=== PATIENT | female | born 1985 | race Caucasian/White ===

== ENCOUNTER 2023-10-10 21:12 | Emergency (ER) | payer OTHER ==
[2023-10-10] MEDS: diphenhydrAMINE 50MG/ML VIAL IM ONE (21:15)
[2023-10-10] MEDS: HALOPERIDOL 5MG/ML 1ML VIAL IM ONE (21:15)
[2023-10-10] MEDS ORDERED: LORazepam 2 MG/ML 1ML VIAL IM ONE (21:20)
[2023-10-10] MEDS: UNRESOLVED CLARIFICATION ENTRY XX STA (21:21)
[2023-10-10 22:21] LABS: HEMATOCRIT 39.5 % (36.0-47.0); HEMOGLOBIN 14.5 g/dl (12.0-15.5); MEAN CORPUSCULAR VOLUME 92.5 fl (80.0-96.0); PLATELET COUNT, AUTOMATED 266 10^3/uL (150-450); RED BLOOD COUNT 4.27 10^6/uL (4.00-5.40); WHITE BLOOD COUNT 7.6 10^3/uL (4.0-10.0)
[2023-10-10 22:29] LABS: MEAN CORPUSCULAR HGB CONC 36.7 g/dl (32.0-36.5)
[2023-10-10 22:46] LABS: ALBUMIN 3.9 G/DL (3.2-5.2); ALKALINE PHOSPHATASE 70 U/L (46-116); ALT/SGPT 74 U/L (7.0-40); AST/SGOT 55 U/L (<34); BILIRUBIN,DIRECT 0.1 MG/DL (<0.4); BILIRUBIN,TOTAL 0.3 MG/DL (0.3-1.2); BLOOD UREA NITROGEN 10 MG/DL (9-23); CALCIUM LEVEL 8.3 MG/DL (8.5-10.1); CARBON DIOXIDE LEVEL 23 MMOL/L (20-31); CHLORIDE LEVEL 111 MMOL/L (98-107); GLOMERULAR FILTRATION RATE > 60.0 (>60); GLUCOSE, FASTING 127 MG/DL (60-100); POTASSIUM SERUM 4.1 MMOL/L (3.5-5.1); SALICYLATE LEVEL < 3.0 MG/DL (<30); SODIUM LEVEL 141 MMOL/L (136-145); TOTAL PROTEIN 7.4 G/DL (5.7-8.2)
[2023-10-10 22:48] LABS: THYROID STIMULATING HORMONE 2.427 uIU/ML (0.55-4.78)
[2023-10-10 22:49] LABS: HCG, SERUM QUALITATIVE NEGATIVE (NEGATIVE)
[2023-10-10 23:03] LABS: ETHYL ALCOHOL (ETHANOL) 0.354 % (0.000-0.010)
[2023-10-11 07:49] VITALS: BP 110/71; TEMP 97.1; O2SAT 97
== END 2023-10-11 08:07 | disposition home or self-care (01) ==
LOC: M ED 21:12
DX: F43.0 Acute stress reaction (principal); F10.129 Alcohol abuse with intoxication, unspecified
CPT/HCPCS: 80048; 80076; 80143; 82077; 84443; 84703; 85027; 87635; 99284; J1200; J1630